=== PATIENT | female | born 1940 | race Caucasian/White ===

== ENCOUNTER → 2017-04-08 | Outpatient (REF) | payer MEDICARE | LOC: M LAB REF 12:46 | PROVIDERS: ATTEND Nurse Practitioner Women's Health | DX: N36.42 Intrinsic sphincter deficiency (ISD) (principal); R39.14 Feeling of incomplete bladder emptying; N39.41 Urge incontinence ==

== ENCOUNTER → 2017-07-07 | Outpatient (REF) | payer MEDICARE | LOC: M LAB REF 09:00 | PROVIDERS: ATTEND Physician Assistant Medical | DX: N39.0 Urinary tract infection, site not specified (principal) ==

== ENCOUNTER → 2017-09-02 | Outpatient (REF) | payer MEDICARE | LOC: M LAB REF 11:45 | PROVIDERS: ATTEND Physician Assistant Medical | DX: N39.0 Urinary tract infection, site not specified (principal) ==

== ENCOUNTER → 2018-05-08 | Outpatient (REF) | payer MEDICARE, OTHER ==
[2018-05-08 13:44] LABS: APPEARANCE, URINE MANUAL CLOUDY (CLEAR); COLOR, URINE MANUAL ORANGE (YELLOW)
[2018-05-08 13:46] LABS: BILIRUBIN, URINE MANUAL OBSCURED (NEGATIVE); BLOOD URINE MANUAL POSITIVE (NEGATIVE); GLUCOSE, URINE (UA) MANUAL NEGATIVE (NEGATIVE); KETONE, URINE MANUAL OBSCURED mg/dL (NEGATIVE); LEUKOCYTE ESTERASE, URINE MAN POSITIVE (NEGATIVE); NITRITE, URINE MANUAL OBSCURED (NEGATIVE); PROTEIN, URINE MANUAL OBSCURED mg/dL (NEGATIVE); UROBILINOGEN, URINE MANUAL OBSCURED mg/dl (NORMAL)
[2018-05-08 13:47] LABS: MICROSCOPIC INDICATED? MAN YES (NO)
[2018-05-08 13:59] LABS: BACTERIA, URINE LARGE AMOUNT; MUCUS, URINE MOD AMOUNT (NEGATIVE); SQUAMOUS EPITHELIAL CELL URINE SMALL AMOUNT /hpf (SMALL AMT); WBC, URINE TNTC /hpf (0-3)
[2018-05-08 14:01] LABS: TRANSITIONAL EPI CELLS, URINE SMALL AMOUNT /hpf
[2018-05-08 14:04] LABS: HYALINE CAST, URINE NONE SEEN /lpf (0-1); MICROSCOPIC EXAM PERFORMED
== END ==
LOC: M LAB REF 13:07
DX: N39.0 Urinary tract infection, site not specified (principal)
CPT/HCPCS: 81015

== ENCOUNTER → 2018-09-02 | Outpatient (REF) | payer OTHER ==
[2018-09-02 22:05] LABS: APPEARANCE, URINE HAZY (CLEAR); BACTERIA, URINE AUTO 1+ (NEGATIVE); BILIRUBIN, URINE AUTO NEGATIVE (NEGATIVE); BLOOD, URINE BLOOD NEGATIVE (NEGATIVE); CALCIUM OXALATE CRYSTALS LARGE; COLOR, URINE YELLOW (YELLOW); GLUCOSE, URINE (UA) AUTO NEGATIVE (NEGATIVE); KETONE, URINE AUTO NEGATIVE (NEGATIVE); LEUKOCYTE ESTERASE, URINE AUTO 1+ (NEGATIVE); MUCUS, URINE SMALL (NEGATIVE); NITRITE, URINE AUTO POSITIVE (NEGATIVE); PROTEIN, URINE AUTO NEGATIVE (NEGATIVE); RBC, URINE AUTO 6 /HPF (0-3); SPECIFIC GRAVITY URINE AUTO 1.018 (1.002-1.035); SQUAMOUS EPITHELIAL CELL UR AU 0 /HPF (0-6); TRANSITIONAL EPITHELIAL AUTO <1 /HPF; UROBILINOGEN, URINE AUTO 0.2 mg/dL (0.0-2.0); WBC, URINE AUTO 38 /HPF (0-3)
== END ==
LOC: M LAB REF 21:16
DX: N39.0 Urinary tract infection, site not specified (principal)
CPT/HCPCS: 81001

== ENCOUNTER → 2018-09-29 | Outpatient (REF) | payer OTHER ==
[2018-09-29 13:34] LABS: ALBUMIN/GLOBULIN RATIO 1.29 (1.00-1.93); ALKALINE PHOSPHATASE 64 U/L (45-117); ALT/SGPT 19 U/L (12-78); ANION GAP 5 MEQ/L (8-16); AST/SGOT 19 U/L (7-37); BILIRUBIN,TOTAL 0.3 MG/DL (0.2-1.0); BLOOD UREA NITROGEN 20 MG/DL (7-18); CALCIUM LEVEL 9.5 MG/DL (8.8-10.2); CARBON DIOXIDE LEVEL 30 MEQ/L (21-32); CHLORIDE LEVEL 106 MEQ/L (98-107); CHOLESTEROL LEVEL 231 MG/DL (<200); CHOLESTEROL RISK RATIO 5.021 (<5); CREATININE FOR GFR 0.76 MG/DL (0.55-1.30); FREE T4 0.93 NG/DL (0.76-1.46); GLOMERULAR FILTRATION RATE > 60.0 (>39); GLUCOSE, FASTING 90 MG/DL (70-100); HDL CHOLESTEROL 46 MG/DL (>40); LDL CHOLESTEROL 131 MG/DL (<100); NON-HDL-C 185 MG/DL; POTASSIUM SERUM 4.3 MEQ/L (3.5-5.1); SODIUM LEVEL 141 MEQ/L (136-145); TOTAL PROTEIN 7.1 GM/DL (6.4-8.2); TRIGLYCERIDES LEVEL 269 MG/DL (<150)
[2018-09-29 14:17] LABS: TOTAL 25(OH) VITAMIN D 33.2 NG/ML (30.0-100.0)
== END ==
LOC: M SFHCPLAZ 11:13
DX: E78.2 Mixed hyperlipidemia (principal); M85.80 Other specified disorders of bone density and structure, unspecified site
CPT/HCPCS: 84443

== ENCOUNTER → 2019-05-20 | Outpatient (REF) | payer OTHER ==
[2019-05-20 19:07] LABS: APPEARANCE, URINE CLOUDY (CLEAR); BACTERIA, URINE AUTO 1+ (NEGATIVE); BILIRUBIN, URINE AUTO NEGATIVE (NEGATIVE); BLOOD, URINE BLOOD NEGATIVE (NEGATIVE); COLOR, URINE YELLOW (YELLOW); GLUCOSE, URINE (UA) AUTO NEGATIVE (NEGATIVE); KETONE, URINE AUTO NEGATIVE (NEGATIVE); LEUKOCYTE ESTERASE, URINE AUTO TRACE (NEGATIVE); MUCUS, URINE SMALL (NEGATIVE); NITRITE, URINE AUTO NEGATIVE (NEGATIVE); PROTEIN, URINE AUTO NEGATIVE (NEGATIVE); RBC, URINE AUTO 2 /HPF (0-3); SPECIFIC GRAVITY URINE AUTO 1.019 (1.002-1.035); SQUAMOUS EPITHELIAL CELL UR AU 9 /HPF (0-6); UROBILINOGEN, URINE AUTO 0.2 mg/dL (0.0-2.0); WBC, URINE AUTO 11 /HPF (0-3)
== END ==
LOC: M LAB REF 16:14
PROVIDERS: ATTEND Obstetrics & Gynecology
DX: N39.41 Urge incontinence (principal)

== ENCOUNTER → 2019-07-03 | Outpatient (REF) | payer MEDICARE | LOC: M LAB REF 12:40 | PROVIDERS: ATTEND Physician Assistant | DX: R30.0 Dysuria (principal) ==

== ENCOUNTER → 2019-09-14 | Outpatient (REF) | payer MEDICARE ==
[2019-09-14 13:35] LABS: APPEARANCE, URINE CLEAR (CLEAR); BACTERIA, URINE AUTO NEGATIVE (NEGATIVE); BILIRUBIN, URINE AUTO NEGATIVE (NEGATIVE); BLOOD, URINE BLOOD NEGATIVE (NEGATIVE); COLOR, URINE YELLOW (YELLOW); GLUCOSE, URINE (UA) AUTO NEGATIVE (NEGATIVE); KETONE, URINE AUTO NEGATIVE (NEGATIVE); LEUKOCYTE ESTERASE, URINE AUTO NEGATIVE (NEGATIVE); MUCUS, URINE SMALL (NEGATIVE); NITRITE, URINE AUTO NEGATIVE (NEGATIVE); PROTEIN, URINE AUTO NEGATIVE (NEGATIVE); RBC, URINE AUTO 0 /HPF (0-3); SPECIFIC GRAVITY URINE AUTO 1.016 (1.002-1.035); SQUAMOUS EPITHELIAL CELL UR AU 1 /HPF (0-6); UROBILINOGEN, URINE AUTO 0.2 mg/dL (0.0-2.0); WBC, URINE AUTO 1 /HPF (0-3)
== END ==
LOC: M LAB REF 12:26
PROVIDERS: ATTEND Physician Assistant Medical
DX: N39.0 Urinary tract infection, site not specified (principal)

== ENCOUNTER → 2019-10-06 | Outpatient (REF) | payer MEDICARE ==
[2019-10-06 18:08] LABS: HEMATOCRIT 39.7 % (36.0-47.0); HEMOGLOBIN 12.5 g/dl (12.0-15.5); MEAN CORPUSCULAR HEMOGLOBIN 30.1 pg (27.0-33.0); MEAN CORPUSCULAR HGB CONC 31.5 g/dl (32.0-36.5); MEAN CORPUSCULAR VOLUME 95.7 fl (80.0-96.0); PLATELET COUNT, AUTOMATED 214 10^3/uL (150-450); RED BLOOD COUNT 4.15 10^6/uL (4.00-5.40); WHITE BLOOD COUNT 9.9 10^3/uL (4.0-10.0)
[2019-10-06 18:28] LABS: ALBUMIN 3.9 GM/DL (3.2-5.2); ALT/SGPT 24 U/L (12-78); BILIRUBIN,TOTAL 0.4 MG/DL (0.2-1.0); BLOOD UREA NITROGEN 25 MG/DL (7-18); CALCIUM LEVEL 8.9 MG/DL (8.8-10.2); CARBON DIOXIDE LEVEL 28 MEQ/L (21-32); CHLORIDE LEVEL 106 MEQ/L (98-107); CHOLESTEROL LEVEL 202 MG/DL (<200); CHOLESTEROL RISK RATIO 3.884 (<5); CREATININE FOR GFR 0.91 MG/DL (0.55-1.30); GLOMERULAR FILTRATION RATE > 60.0 (>39); GLUCOSE, FASTING 81 MG/DL (70-100); HDL CHOLESTEROL 52 MG/DL (>40); LDL CHOLESTEROL 117 MG/DL (<100); NON-HDL-C 150 MG/DL; POTASSIUM SERUM 4.4 MEQ/L (3.5-5.1); SODIUM LEVEL 140 MEQ/L (136-145); TOTAL PROTEIN 7.3 GM/DL (6.4-8.2); TRIGLYCERIDES LEVEL 164 MG/DL (<150)
[2019-10-06 18:33] LABS: TOTAL 25(OH) VITAMIN D 38.8 NG/ML (30.0-100.0)
== END ==
LOC: M SFHCCLAY 11:15
PROVIDERS: ATTEND Nurse Practitioner Family
DX: E78.2 Mixed hyperlipidemia (principal); K21.9 Gastro-esophageal reflux disease without esophagitis; M85.80 Other specified disorders of bone density and structure, unspecified site

== ENCOUNTER → 2019-10-09 | Outpatient (CLI) | payer MEDICARE ==
--- NOTE | 2019-10-09 16:56 | REP ---
Four views left ankle and four views left tibia / fibula: 10/09/2019. Indication: Distal left leg pain. New comparison: None. Findings: There is no evidence of fracture, subluxation or dislocation. Small anterior and posterior calcaneal spurs are present. 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 Impression: No acute fracture or additional acute osseous injuries detected. Electronically Signed by Arnulfo Rose DO 10/09/2019 04:47 P
== END ==
LOC: M CLY 15:21
PROVIDERS: ATTEND Nurse Practitioner Family
DX: M17.12 Unilateral primary osteoarthritis, left knee (principal); M77.32 Calcaneal spur, left foot; M79.605 Pain in left leg; Z23 Encounter for immunization
CPT/HCPCS: 73590; 73610; 90682; G0008; G0463

== ENCOUNTER → 2020-05-26 | Outpatient (REF) | payer MEDICARE | LOC: M SFHCCLAY 11:31 | PROVIDERS: ATTEND Nurse Practitioner Family | DX: N39.0 Urinary tract infection, site not specified (principal) ==

== ENCOUNTER → 2021-02-22 | Outpatient (REF) | payer OTHER ==
[2021-02-22 11:33] LABS: HEMATOCRIT 39.5 % (36.0-47.0); HEMOGLOBIN 12.8 g/dl (12.0-15.5); MEAN CORPUSCULAR HEMOGLOBIN 30.4 pg (27.0-33.0); MEAN CORPUSCULAR HGB CONC 32.4 g/dl (32.0-36.5); MEAN CORPUSCULAR VOLUME 93.8 fl (80.0-96.0); PLATELET COUNT, AUTOMATED 225 10^3/uL (150-450); RED BLOOD COUNT 4.21 10^6/uL (4.00-5.40); WHITE BLOOD COUNT 6.6 10^3/uL (4.0-10.0)
[2021-02-22 11:56] LABS: ALBUMIN 3.8 GM/DL (3.2-5.2); ALT/SGPT 18 U/L (12-78); BILIRUBIN,TOTAL 0.4 MG/DL (0.2-1.0); BLOOD UREA NITROGEN 16 MG/DL (7-18); CALCIUM LEVEL 9.3 MG/DL (8.8-10.2); CARBON DIOXIDE LEVEL 29 MEQ/L (21-32); CHLORIDE LEVEL 107 MEQ/L (98-107); CHOLESTEROL LEVEL 199 MG/DL (<200); CHOLESTEROL RISK RATIO 3.685 (<5); CREATININE FOR GFR 0.77 MG/DL (0.55-1.30); GLOMERULAR FILTRATION RATE > 60.0 (>32); GLUCOSE, FASTING 94 MG/DL (70-100); HDL CHOLESTEROL 54 MG/DL (>40); LDL CHOLESTEROL 124 MG/DL (<100); NON-HDL-C 145 MG/DL; SODIUM LEVEL 142 MEQ/L (136-145); TOTAL PROTEIN 7.3 GM/DL (6.4-8.2); TRIGLYCERIDES LEVEL 105 MG/DL (<150)
[2021-02-22 12:03] LABS: TOTAL 25(OH) VITAMIN D 26.8 NG/ML (30.0-100.0)
== END ==
LOC: M SFHCCLAY 08:52
PROVIDERS: ATTEND Nurse Practitioner Family
DX: K21.9 Gastro-esophageal reflux disease without esophagitis (principal); E78.2 Mixed hyperlipidemia; Z13.21 Encounter for screening for nutritional disorder; Z79.899 Other long term (current) drug therapy

== ENCOUNTER → 2021-05-13 | Outpatient (CLI) | payer OTHER ==
[~2021-05-13] MED LIST: ASPI81TA26 PO; CALC500T38 PO; CRAN200C PO; ESTR0.1C5; FISH1000 PO; GNP1000C11 PO; K 10100T PO; VITMTA PO; ZINC1TAB2 PO
== END ==
LOC: M LABSMTC 10:16
PROVIDERS: ATTEND Anesthesiology
DX: Z11.52 Encounter for screening for COVID-19 (principal)

== ENCOUNTER 2021-05-18 08:34 | Day surgery (SDC) | payer OTHER ==
[~2021-05-18] VITALS: Ht 167.6 cm; Wt 94.3 kg
[~2021-05-18 08:34] MED LIST changes: +LR 1,000 ML IV ONE; +ceFAZolin SOD 2 GM in IV 1 EA IV ONE
[2021-05-18] MEDS ORDERED: ETOMIDATE INJ 20MG/10ML VIAL As Ordered ONE (09:48)
[2021-05-18] MEDS ORDERED: ceFAZolin 1GM VIAL (J0690 PER 500MG) As Ordered ONE (10:41)
[2021-05-18] MEDS ORDERED: LIDOCAINE 1% SDV 30ML VIAL As Ordered ONE (10:41)
[2021-05-18] MEDS ORDERED: propofoL 200 MG/20 ML VIAL As Ordered ONE (11:51)
--- NOTE | 2021-05-18 12:51 | REP ---
INDICATION: PLACEMENT OF LEAD. COMPARISON: None. TECHNIQUE: Three views. 49.3 seconds of fluoroscopy time is reported. FINDINGS: A sequence of 3 last image hold fluoroscopically obtained spot radiographs the pelvis document neurostimulator lead placement. IMPRESSION: Procedural imaging. <Electronically signed by Kishor Jose > 05/18/21 [id number]
[2021-05-18 13:06] VITALS: BP 167/81
--- NOTE | 2021-05-18 15:04 | RO ---
OPERATIVE NOTE DATE OF OPERATION: 05/18/2021 PREOPERATIVE DIAGNOSIS/INDICATIONS FOR SURGERY: Incontinence. POSTOPERATIVE DIAGNOSIS: Incontinence. PROCEDURE: InterStim stage I. SURGEON: Chantale Snowden MD MANAGER PHOTO: None. ANESTHESIA: Sedation and local. DESCRIPTION OF PROCEDURE/FINDINGS: Halle was brought to the operating room where sufficient sedation was given. She was prepped, draped and positioned prone as is typical for InterStim. After prep, etc, she was numbed with 1% Lidocaine without and then after waiting for that to setup starting on the patient's left side dropped the needle into 3rd sacral foramen and tested it, really did not have a good response, finally got that better with like a 3 so we placed in two other locations into that same foramen a needle and really did not get good response even though by films we seem to be at the appropriate spot in the foramen. We went to the patient's right side and again with the needle placed in the 3rd sacral foramen and this confirmed by x-ray evaluation we went ahead and tested and we had good maco and toe response so we decided to use that one on the right side. With that in the typical fashion the curved lead was placed on the right side and testing it we had response at all four leads at under 1. We then extended that out to pocket which we made today, connected it again, brought in the extension and connected those and then irrigated the pocket and closed the pocket and closed all of the skin wounds. We used the antibacterial irrigant, we did not use the iodine impregnated sticky drape because the patient is allergic to iodine but we were careful in the prep as much as possible otherwise and did of course use the antibiotic irrigant. With the wounds closed and the procedure ended. ESTIMATED BLOOD LOSS: About 2 mL. FLUID REPLACEMENT: Crystalloid. COMPLICATIONS: None. CONDITION/DISPOSITION: Halle tolerated the procedure well and was recovering in the recovery room in good condition.
== END 2021-05-18 13:11 | disposition home or self-care (01) ==
LOC: M SDC 08:34
PROVIDERS: ATTEND Obstetrics & Gynecology
DX: R32 Unspecified urinary incontinence (principal); G47.30 Sleep apnea, unspecified; Z87.440 Personal history of urinary (tract) infections; Z88.8 Allergy status to other drugs, medicaments and biological substances; Z88.2 Allergy status to sulfonamides; Z79.899 Other long term (current) drug therapy; Z79.890 Hormone replacement therapy; Z79.82 Long term (current) use of aspirin
CPT/HCPCS: 64581; 76000; C1897; J0690

== ENCOUNTER → 2021-05-20 | Outpatient (CLI) | payer OTHER ==
[~2021-05-20] MED LIST changes: -LR 1,000 ML IV ONE; -ceFAZolin SOD 2 GM in IV 1 EA IV ONE
== END ==
LOC: M LABSMTC 09:52
PROVIDERS: ATTEND Anesthesiology
DX: Z01.818 Encounter for other preprocedural examination (principal); Z20.822 Contact with and (suspected) exposure to COVID-19

== ENCOUNTER 2021-05-25 12:06 | Day surgery (SDC) | payer OTHER ==
[~2021-05-25] VITALS: Ht 167.6 cm; Wt 92.9 kg
[~2021-05-25 12:06] MED LIST changes: +LIDOCAINE 1% MDV 20ML VIAL SQ PRN; +LR 1,000 ML IV ONE; +LR 1,000 ML IV SCH; +ceFAZolin SOD 2 GM in IV 1 EA IV ONE
[2021-05-25] MEDS ORDERED: LIDOCAINE 1% SDV 30ML VIAL As Ordered ONE (14:05)
[2021-05-25] MEDS ORDERED: dexameTHASONE 4 MG/ML 1ML VIAL (J1100 PER 1MG) As Ordered ONE (14:06)
[2021-05-25] MEDS ORDERED: LIDOCAINE 2% 100MG/5ML SDV (FOR ANES.) As Ordered ONE (14:06)
[2021-05-25] MEDS ORDERED: ONDANSETRON 4MG/2ML VIAL As Ordered ONE (14:06)
[2021-05-25] MEDS ORDERED: propofoL 500 MG/50 ML VIAL As Ordered ONE (14:07)
[2021-05-25] MEDS ORDERED: MIDAZOLAM INJ 2MG/2ML VIAL (J2250 PER 1MG) As Ordered ONE (14:07)
[2021-05-25] MEDS ORDERED: fentaNYL 100 MCG/2 ML INJECTION (J3010) As Ordered ONE (14:07)
[2021-05-25] MEDS ORDERED: ceFAZolin 1GM VIAL (J0690 PER 500MG) As Ordered ONE (14:10)
[2021-05-25 16:04] VITALS: BP 140/84
--- NOTE | 2021-05-26 11:04 | RO ---
OPERATIVE NOTE DATE OF OPERATION: 05/25/2021 PREOPERATIVE DIAGNOSIS/INDICATIONS FOR SURGERY: Successful stage 1 InterStim for incontinence. POSTOPERATIVE DIAGNOSIS: Successful stage 1 InterStim for incontinence. PROCEDURE: Stage 2 InterStim with permanent generator placement and programming and removal of temporary generator and lead. SURGEON: Chantale Snowden MD SUPERVISOR CIGAR MAKING HAND: None. ANESTHESIA: MAC and local. SPECIMEN: None. DESCRIPTION OF PROCEDURE/FINDINGS: Halle was brought to the operating room where sufficient MAC was induced. She was prepped and positioned in normal fashion, prone as is typical for these cases and after the time out, etc 1% Lidocaine without was injected for local analgesia. After an appropriate wait incision was made over the previous temporary pocket. The connection of the permanent lead to the temporary lead and generator was elevated and disconnected. The end of the temporary lead was cut off so that we could then just draw out the temporary lead without that bulk coming through again. The permanent lead was connected to the permanent generator. Pocket was irrigated with antibacterial irrigant and reevaluated. Any bleeding vessels were cauterized with Bovie cautery. The Shiftgigtronic permanent InterStim rechargeable generator was placed and the pocket secured using 2-0 Vicryl in deep layer and then skin closed with 3-0 Vicryl in subcuticular stitch. The sutures from the previous procedures were removed and the temporary lead and generator removed. Dry, sterile dressing was then done and programming the permanent generator done and the procedure ended. ESTIMATED BLOOD LOSS: 1 mL. FLUID REPLACEMENT: Crystalloid. COMPLICATIONS: None. CONDITION AND DISPOSITION: Halle tolerated the procedure well and was recovering in the recovery room in good condition.
== END 2021-05-25 16:04 | disposition home or self-care (01) ==
LOC: M SDC 12:06
PROVIDERS: ATTEND Obstetrics & Gynecology
DX: R32 Unspecified urinary incontinence (principal); G47.33 Obstructive sleep apnea (adult) (pediatric); Z78.0 Asymptomatic menopausal state; Z79.82 Long term (current) use of aspirin; Z88.2 Allergy status to sulfonamides; Z91.048 Other nonmedicinal substance allergy status
CPT/HCPCS: 64590; C1787; J0690; J1100; J2250; J2405; J3010

== ENCOUNTER → 2021-07-21 | Outpatient (REF) | payer OTHER ==
[~2021-07-21] MED LIST changes: -LIDOCAINE 1% MDV 20ML VIAL SQ PRN; -LR 1,000 ML IV ONE; -LR 1,000 ML IV SCH; -ceFAZolin SOD 2 GM in IV 1 EA IV ONE
[2021-07-21 17:47] LABS: APPEARANCE, URINE HAZY (CLEAR); BACTERIA, URINE AUTO NEGATIVE (NEGATIVE); BILIRUBIN, URINE AUTO NEGATIVE (NEGATIVE); BLOOD, URINE BLOOD NEGATIVE (NEGATIVE); COLOR, URINE YELLOW (YELLOW); GLUCOSE, URINE (UA) AUTO NEGATIVE (NEGATIVE); KETONE, URINE AUTO NEGATIVE (NEGATIVE); LEUKOCYTE ESTERASE, URINE AUTO 1+ (NEGATIVE); MUCUS, URINE SMALL (NEGATIVE); NITRITE, URINE AUTO NEGATIVE (NEGATIVE); PROTEIN, URINE AUTO NEGATIVE (NEGATIVE); RBC, URINE AUTO 1 /HPF (0-3); SPECIFIC GRAVITY URINE AUTO 1.011 (1.002-1.035); SQUAMOUS EPITHELIAL CELL UR AU 0 /HPF (0-6); UROBILINOGEN, URINE AUTO 0.2 mg/dL (0.0-2.0); WBC, URINE AUTO 15 /HPF (0-3)
== END ==
LOC: M LAB REF 16:13
PROVIDERS: ATTEND Physician Assistant Medical
DX: R30.0 Dysuria (principal)

== ENCOUNTER → 2022-04-18 | Outpatient (REF) | payer OTHER ==
[2022-04-18 17:20] LABS: APPEARANCE, URINE CLEAR (CLEAR); BACTERIA, URINE AUTO 1+ (NEGATIVE); BILIRUBIN, URINE AUTO NEGATIVE (NEGATIVE); BLOOD, URINE BLOOD NEGATIVE (NEGATIVE); COLOR, URINE STRAW (YELLOW); GLUCOSE, URINE (UA) AUTO NEGATIVE (NEGATIVE); KETONE, URINE AUTO NEGATIVE (NEGATIVE); LEUKOCYTE ESTERASE, URINE AUTO TRACE (NEGATIVE); NITRITE, URINE AUTO NEGATIVE (NEGATIVE); PROTEIN, URINE AUTO NEGATIVE (NEGATIVE); RBC, URINE AUTO 1 /HPF (0-3); SPECIFIC GRAVITY URINE AUTO 1.005 (1.002-1.035); SQUAMOUS EPITHELIAL CELL UR AU 0 /HPF (0-6); UROBILINOGEN, URINE AUTO 0.2 mg/dL (0.0-2.0); WBC, URINE AUTO 2 /HPF (0-3)
== END ==
LOC: M LAB REF 16:11
PROVIDERS: ATTEND Obstetrics & Gynecology
DX: N32.81 Overactive bladder (principal); R39.14 Feeling of incomplete bladder emptying

== ENCOUNTER → 2022-08-28 | Outpatient (REF) | payer OTHER ==
[2022-08-28 12:04] LABS: HEMATOCRIT 36.6 % (36.0-47.0); HEMOGLOBIN 12.1 g/dl (12.0-15.5); MEAN CORPUSCULAR HEMOGLOBIN 31.2 pg (27.0-33.0); MEAN CORPUSCULAR HGB CONC 33.1 g/dl (32.0-36.5); MEAN CORPUSCULAR VOLUME 94.3 fl (80.0-96.0); PLATELET COUNT, AUTOMATED 223 10^3/uL (150-450); RED BLOOD COUNT 3.88 10^6/uL (4.00-5.40); WHITE BLOOD COUNT 7.9 10^3/uL (4.0-10.0)
[2022-08-28 12:20] LABS: BLOOD UREA NITROGEN 22 MG/DL (7-18); CALCIUM LEVEL 9.2 MG/DL (8.8-10.2); CARBON DIOXIDE LEVEL 29 MEQ/L (21-32); CHLORIDE LEVEL 109 MEQ/L (98-107); CHOLESTEROL LEVEL 207 MG/DL (<200); CHOLESTEROL RISK RATIO 3.696 (<5); GLOMERULAR FILTRATION RATE > 60.0 (>32); GLUCOSE, FASTING 101 MG/DL (70-100); HDL CHOLESTEROL 56 MG/DL (>40); LDL CHOLESTEROL 125 MG/DL (<100); NON-HDL-C 151 MG/DL; POTASSIUM SERUM 4.1 MEQ/L (3.5-5.1); SODIUM LEVEL 141 MEQ/L (136-145); TRIGLYCERIDES LEVEL 131 MG/DL (<150)
== END ==
LOC: M SFHCCLAY 08:50
PROVIDERS: ATTEND Nurse Practitioner Family
DX: G47.33 Obstructive sleep apnea (adult) (pediatric) (principal); K21.9 Gastro-esophageal reflux disease without esophagitis; E78.5 Hyperlipidemia, unspecified

== ENCOUNTER → 2023-03-20 | Outpatient (REF) | payer MEDICARE | LOC: M SFHCCLAY 14:08 | PROVIDERS: ATTEND Nurse Practitioner Family | DX: R30.0 Dysuria (principal) ==

== ENCOUNTER → 2023-04-12 | Outpatient (REF) | payer MEDICARE ==
[2023-04-12 12:57] LABS: APPEARANCE, URINE HAZY (CLEAR); BACTERIA, URINE AUTO NEGATIVE (NEGATIVE); BILIRUBIN, URINE AUTO NEGATIVE (NEGATIVE); BLOOD, URINE BLOOD NEGATIVE (NEGATIVE); COLOR, URINE YELLOW (YELLOW); GLUCOSE, URINE (UA) AUTO NEGATIVE (NEGATIVE); KETONE, URINE AUTO NEGATIVE (NEGATIVE); LEUKOCYTE ESTERASE, URINE AUTO 2+ (NEGATIVE); MUCUS, URINE SMALL (NEGATIVE); NITRITE, URINE AUTO NEGATIVE (NEGATIVE); PROTEIN, URINE AUTO NEGATIVE (NEGATIVE); RBC, URINE AUTO 2 /HPF (0-3); SPECIFIC GRAVITY URINE AUTO 1.014 (1.002-1.035); SQUAMOUS EPITHELIAL CELL UR AU 5 /HPF (0-6); UROBILINOGEN, URINE AUTO 0.2 mg/dL (0.0-2.0); WBC, URINE AUTO 24 /HPF (0-3)
== END ==
LOC: M LAB REF 12:15
PROVIDERS: ATTEND Physician Assistant
DX: N39.0 Urinary tract infection, site not specified (principal)

== ENCOUNTER 2023-04-30 09:19 | Emergency (ER) | payer MEDICARE ==
[~2023-04-30] VITALS: Ht 167.6 cm; Wt 90.0 kg
[2023-04-30 09:19] VITALS: TEMP 98.6
[2023-04-30] MEDS ORDERED: METOCLOPRAMIDE INJ 10MG/2ML VIAL IV ONE (10:20)
[2023-04-30] MEDS: MORPHINE 2 MG/ML 1ML VIAL IV PRN ×2 (11:01→12:07)
[2023-04-30 11:07] LABS: BASO # 0.1 10^3/uL (0.0-0.2); BASO % 0.6 % (0.0-1.0); EOS # 0.4 10^3/uL (0.0-0.5); EOS % 4.6 % (0.0-3.0); HEMATOCRIT 38.4 % (36.0-47.0); HEMOGLOBIN 12.7 g/dl (12.0-15.5); LYMPH # 2.2 10^3/uL (1.5-5.0); LYMPH % 28.3 % (24.0-44.0); MEAN CORPUSCULAR HEMOGLOBIN 30.6 pg (27.0-33.0); MEAN CORPUSCULAR HGB CONC 33.1 g/dl (32.0-36.5); MEAN CORPUSCULAR VOLUME 92.5 fl (80.0-96.0); MONO # 0.6 10^3/uL (0.0-0.8); MONO % 7.9 % (2.0-8.0); NEUTROPHILS # 4.5 10^3/uL (1.5-8.5); NEUTROPHILS % 58.1 % (36.0-66.0); PLATELET COUNT, AUTOMATED 192 10^3/uL (150-450); RED BLOOD COUNT 4.15 10^6/uL (4.00-5.40); WHITE BLOOD COUNT 7.8 10^3/uL (4.0-10.0)
[2023-04-30 11:20] LABS: INR 0.97; PROTHROMBIN TIME 13.1 SECONDS (12.5-14.5)
[2023-04-30 11:21] LABS: PARTIAL THROMBOPLASTIN TIME 29.2 SECONDS (24.8-34.2)
[2023-04-30 11:37] LABS: BLOOD UREA NITROGEN 20 MG/DL (9-23); CALCIUM LEVEL 8.7 MG/DL (8.3-10.6); CARBON DIOXIDE LEVEL 28 MMOL/L (20-31); CHLORIDE LEVEL 108 MMOL/L (98-107); CK-MB VALUE MASS < 1.0 NG/ML (<3.6); CPK CREATINE PHOSPHOKINASE 90 U/L (34-145); CREATININE FOR GFR 0.74 MG/DL (0.55-1.30); GLOMERULAR FILTRATION RATE > 60.0 (>32); GLUCOSE, FASTING 90 MG/DL (74-106); MB/CK RELATIVE INDEX 1.11 (< OR =4); POTASSIUM SERUM 4.1 MMOL/L (3.5-5.1); SODIUM LEVEL 142 MMOL/L (136-145)
[2023-04-30] MEDS ORDERED: methylPREDNISolone 125MG 2ML VIAL IV ONE (11:50)
[2023-04-30] MEDS ORDERED: diphenhydrAMINE 50MG/ML VIAL IV ONE ×2 (11:50→14:20)
[2023-04-30 11:55] LABS: RSV AMPLIFICATION NEGATIVE (NEGATIVE)
[2023-04-30 12:18] LABS: ERYTHROCYTE SEDIMENTATION RATE 23 mm/hr (0-30)
[2023-04-30] MEDS ORDERED: ISOVUE-370 76% 100ML VIAL As Ordered ONE (12:50)
[2023-04-30] MEDS ORDERED: KETOROLAC 30 MG/ML 1ML VIAL IV ONE (14:20)
[2023-04-30] MEDS ORDERED: ACETAMINOPHEN 500 MG TAB PO ONE (14:20)
[2023-04-30 14:26] VITALS: BP 112/72
[2023-04-30] MEDS ORDERED: MAG SULF 1GM/100ML (MAG RUN) 1 GM in IV 1 EA IV ONE (14:50)
[2023-04-30] MEDS ORDERED: PRED20TA PO (16:14)
[2023-04-30] MEDS ORDERED: KETO10TAB PO (16:14)
[2023-04-30 16:19] VITALS: O2SAT 96
== END 2023-04-30 16:36 | disposition home or self-care (01) ==
LOC: M ED 09:19
DX: R51.9 Headache, unspecified (principal); E78.5 Hyperlipidemia, unspecified; K44.9 Diaphragmatic hernia without obstruction or gangrene; G47.33 Obstructive sleep apnea (adult) (pediatric); F17.200 Nicotine dependence, unspecified, uncomplicated; Z88.2 Allergy status to sulfonamides; Z88.8 Allergy status to other drugs, medicaments and biological substances; Z79.899 Other long term (current) drug therapy; Z79.82 Long term (current) use of aspirin
CPT/HCPCS: 70450; 70496; 70498; 71045; 80048; 82550; 82553; 84484; 85025; 85610; 85652; 85730; 86140; 87631; 93005; 93041; 94760; 96365; 96375; 96376; 99285; J1200; J1885; J2765; J2930; J3475; Q9967

== ENCOUNTER → 2023-07-27 | Outpatient (REF) | payer MEDICARE ==
[~2023-07-27] MED LIST changes: +KETO10TAB PO; +PRED20TA PO
[2023-07-27 17:38] LABS: APPEARANCE, URINE CLOUDY (CLEAR); BACTERIA, URINE AUTO 2+ (NEGATIVE); BILIRUBIN, URINE AUTO NEGATIVE (NEGATIVE); BLOOD, URINE BLOOD 1+ (NEGATIVE); COLOR, URINE AMBER (YELLOW); GLUCOSE, URINE (UA) AUTO NEGATIVE (NEGATIVE); KETONE, URINE AUTO TRACE mg/dL (NEGATIVE); LEUKOCYTE ESTERASE, URINE AUTO 2+ (NEGATIVE); MUCUS, URINE MODERATE (NEGATIVE); NITRITE, URINE AUTO NEGATIVE (NEGATIVE); PROTEIN, URINE AUTO NEGATIVE (NEGATIVE); RBC, URINE AUTO 4 /HPF (0-3); SPECIFIC GRAVITY URINE AUTO 1.017 (1.002-1.035); SQUAMOUS EPITHELIAL CELL UR AU 10 /HPF (0-6); UROBILINOGEN, URINE AUTO 0.2 mg/dL (0.0-2.0); WBC, URINE AUTO 69 /HPF (0-3)
== END ==
LOC: M LAB REF 17:20
PROVIDERS: ATTEND Physician Assistant Medical
DX: N39.0 Urinary tract infection, site not specified (principal)

== ENCOUNTER → 2023-09-20 | Outpatient (REF) | payer MEDICARE ==
[2023-09-20 17:48] LABS: HEMOGLOBIN A1c 5.2 % (4.0-6.0)
[2023-09-20 18:05] LABS: ALBUMIN 3.9 G/DL (3.2-5.2); ALKALINE PHOSPHATASE 54 U/L (46-116); ALT/SGPT 12 U/L (7.0-40); AST/SGOT 17 U/L (<34); BILIRUBIN,TOTAL 0.4 MG/DL (0.3-1.2); BLOOD UREA NITROGEN 23 MG/DL (9-23); CALCIUM LEVEL 10.6 MG/DL (8.3-10.6); CARBON DIOXIDE LEVEL 29 MMOL/L (20-31); CHLORIDE LEVEL 105 MMOL/L (98-107); CHOLESTEROL LEVEL 242 MG/DL (<200); CHOLESTEROL RISK RATIO 4.44 (<5); CREATININE FOR GFR 0.74 MG/DL (0.55-1.30); GLOMERULAR FILTRATION RATE > 60.0 (>32); GLUCOSE, FASTING 89 MG/DL (74-106); HDL CHOLESTEROL 54.4 MG/DL (>40); LDL CHOLESTEROL 155.8 MG/DL (<100); NON-HDL-C 187.6 MG/DL; POTASSIUM SERUM 4.1 MMOL/L (3.5-5.1); SODIUM LEVEL 142 MMOL/L (136-145); TOTAL PROTEIN 7.2 G/DL (5.7-8.2); TRIGLYCERIDES LEVEL 159 MG/DL (<150)
== END ==
LOC: M SFHCCLAY 11:26
PROVIDERS: ATTEND Nurse Practitioner Family
DX: Z13.1 Encounter for screening for diabetes mellitus (principal); E78.5 Hyperlipidemia, unspecified; I10 Essential (primary) hypertension; R35.0 Frequency of micturition; Z79.899 Other long term (current) drug therapy

== ENCOUNTER → 2023-10-01 | Outpatient (REF) | payer MEDICARE ==
[2023-10-01 17:33] LABS: APPEARANCE, URINE HAZY (CLEAR); BACTERIA, URINE AUTO NEGATIVE (NEGATIVE); BILIRUBIN, URINE AUTO NEGATIVE (NEGATIVE); BLOOD, URINE BLOOD NEGATIVE (NEGATIVE); COLOR, URINE YELLOW (YELLOW); GLUCOSE, URINE (UA) AUTO NEGATIVE (NEGATIVE); KETONE, URINE AUTO NEGATIVE (NEGATIVE); LEUKOCYTE ESTERASE, URINE AUTO NEGATIVE (NEGATIVE); MUCUS, URINE SMALL (NEGATIVE); NITRITE, URINE AUTO NEGATIVE (NEGATIVE); PROTEIN, URINE AUTO NEGATIVE (NEGATIVE); RBC, URINE AUTO 0 /HPF (0-3); SPECIFIC GRAVITY URINE AUTO 1.014 (1.002-1.035); SQUAMOUS EPITHELIAL CELL UR AU 7 /HPF (0-6); UROBILINOGEN, URINE AUTO 0.2 mg/dL (0.0-2.0); WBC, URINE AUTO 1 /HPF (0-3)
== END ==
LOC: M SFHCCLAY 10:13
PROVIDERS: ATTEND Nurse Practitioner Family
DX: N39.0 Urinary tract infection, site not specified (principal)

== ENCOUNTER 2024-03-18 08:10 | Emergency (ER) | payer MEDICARE, OTHER ==
[~2024-03-18] VITALS: Ht 167.6 cm; Wt 95.5 kg
[2024-03-18 09:33] LABS: BASO % 0.3 % (0.0-1.0); HEMATOCRIT 37.8 % (36.0-47.0); HEMOGLOBIN 12.4 g/dl (12.0-15.5); LYMPH # 1.5 10^3/uL (1.5-5.0); LYMPH % 13.4 % (24.0-44.0); MEAN CORPUSCULAR HEMOGLOBIN 30.6 pg (27.0-33.0); MEAN CORPUSCULAR HGB CONC 32.8 g/dl (32.0-36.5); MEAN CORPUSCULAR VOLUME 93.3 fl (80.0-96.0); MONO # 1.3 10^3/uL (0.0-0.8); NEUTROPHILS # 8.6 10^3/uL (1.5-8.5); PLATELET COUNT, AUTOMATED 211 10^3/uL (150-450); RED BLOOD COUNT 4.05 10^6/uL (4.00-5.40); WHITE BLOOD COUNT 11.5 10^3/uL (4.0-10.0)
[2024-03-18 10:03] LABS: OSMOLALITY SERUM 298 MOSM/KG (280-301)
[2024-03-18 10:06] LABS: ALBUMIN 3.5 G/DL (3.2-5.2); ALKALINE PHOSPHATASE 46 U/L (46-116); ALT/SGPT 11 U/L (7.0-40); AST/SGOT 17 U/L (<34); BILIRUBIN,DIRECT 0.2 MG/DL (<0.4); BILIRUBIN,TOTAL 0.5 MG/DL (0.3-1.2); BLOOD UREA NITROGEN 21 MG/DL (9-23); CALCIUM LEVEL 9.4 MG/DL (8.3-10.6); CARBON DIOXIDE LEVEL 26 MMOL/L (20-31); CHLORIDE LEVEL 108 MMOL/L (98-107); CREATININE FOR GFR 0.69 MG/DL (0.55-1.30); GLOMERULAR FILTRATION RATE > 60.0 (>32); GLUCOSE, FASTING 129 MG/DL (74-106); MAGNESIUM LEVEL 1.7 MG/DL (1.8-2.4); POTASSIUM SERUM 3.6 MMOL/L (3.5-5.1); SODIUM LEVEL 141 MMOL/L (136-145); TOTAL PROTEIN 6.9 G/DL (5.7-8.2)
[2024-03-18 10:07] LABS: THYROID STIMULATING HORMONE 1.587 uIU/ML (0.55-4.78)
[2024-03-18 10:08] LABS: FOLATE > 24.00 NG/ML (>5.4); VITAMIN B12 LEVEL 355 PG/ML (211-911)
[2024-03-18] MEDS: ONDANSETRON 4MG 2ML VIAL IV ONE (11:38)
[2024-03-18] MEDS: MORPHINE 2 MG/ML 1ML VIAL IV PRN (11:39)
[2024-03-18] MEDS ORDERED: OMEG100011 PO (13:22)
[2024-03-18] MEDS ORDERED: MULT-40 PO (13:22)
[2024-03-18] MEDS ORDERED: ZINC220CA PO (13:22)
[2024-03-18] MEDS ORDERED: CRAN400C PO (13:22)
[2024-03-18] MEDS ORDERED: HOME MED LIST COMPLETE! XX SCH (13:25)
[2024-03-18] MEDS: NS 1,000 ML IV SCH (15:48)
[2024-03-18] MEDS: MORPHINE 4 MG/ML 1ML VIAL IV PRN (18:12)
[2024-03-18 18:17] VITALS: BP 166/73; TEMP 97.7; O2SAT 96
== END 2024-03-18 18:40 | disposition short-term general hospital (02) ==
LOC: M ED 08:10
DX: G83.4 Cauda equina syndrome (principal); Z88.2 Allergy status to sulfonamides; Z88.8 Allergy status to other drugs, medicaments and biological substances; Z79.899 Other long term (current) drug therapy; Z79.810 Long term (current) use of selective estrogen receptor modulators (SERMs)
CPT/HCPCS: 72148; 80048; 80076; 82607; 82746; 83605; 83735; 83930; 84443; 85025; 87486; 87581; 87633; 87798; 93005; 93041; 94760; 96361; 96374; 96375; 96376; 99285; J2405

== ENCOUNTER → 2024-04-03 | Outpatient (REF) | payer OTHER ==
[~2024-04-03] MED LIST changes: +CRAN400C PO; +MULT-40 PO; +OMEG100011 PO; +ZINC220CA PO
[2024-04-03 17:16] LABS: BASO # 0.1 10^3/uL (0.0-0.2); BASO % 0.6 % (0.0-1.0); EOS # 0.1 10^3/uL (0.0-0.5); EOS % 0.9 % (0.0-3.0); HEMATOCRIT 34.3 % (36.0-47.0); HEMOGLOBIN 11.2 g/dl (12.0-15.5); LYMPH # 2.8 10^3/uL (1.5-5.0); LYMPH % 29.2 % (24.0-44.0); MEAN CORPUSCULAR HEMOGLOBIN 30.8 pg (27.0-33.0); MEAN CORPUSCULAR HGB CONC 32.7 g/dl (32.0-36.5); MEAN CORPUSCULAR VOLUME 94.2 fl (80.0-96.0); MONO # 0.9 10^3/uL (0.0-0.8); MONO % 8.9 % (2.0-8.0); NEUTROPHILS # 5.8 10^3/uL (1.5-8.5); NEUTROPHILS % 59.6 % (36.0-66.0); PLATELET COUNT, AUTOMATED 365 10^3/uL (150-450); RED BLOOD COUNT 3.64 10^6/uL (4.00-5.40); WHITE BLOOD COUNT 9.7 10^3/uL (4.0-10.0)
[2024-04-03 17:20] LABS: ALBUMIN 3.2 G/DL (3.2-5.2); ALKALINE PHOSPHATASE 67 U/L (46-116); ALT/SGPT 16 U/L (7.0-40); AST/SGOT 12 U/L (<34); BILIRUBIN,TOTAL 0.2 MG/DL (0.3-1.2); BLOOD UREA NITROGEN 18 MG/DL (9-23); CARBON DIOXIDE LEVEL 30 MMOL/L (20-31); CHLORIDE LEVEL 107 MMOL/L (98-107); CREATININE FOR GFR 0.77 MG/DL (0.55-1.30); GLOMERULAR FILTRATION RATE > 60.0 (>32); GLUCOSE, FASTING 92 MG/DL (74-106); POTASSIUM SERUM 4.1 MMOL/L (3.5-5.1); SODIUM LEVEL 142 MMOL/L (136-145); TOTAL PROTEIN 6.8 G/DL (5.7-8.2)
== END ==
LOC: M SFHCCLAY 14:40
PROVIDERS: ATTEND Nurse Practitioner Family
DX: G83.4 Cauda equina syndrome (principal)

== ENCOUNTER → 2024-08-06 | Outpatient (REF) | payer OTHER ==
[~2024-08-06] MED LIST changes: -CRAN400C PO; +CRANBERRY400 MG PO
== END ==
LOC: M SFHCCLAY 11:45 → EEVIPCON 11:45
PROVIDERS: ATTEND Nurse Practitioner Family
DX: R35.0 Frequency of micturition (principal)

== ENCOUNTER → 2024-09-01 | Outpatient (REF) | payer OTHER | LOC: M SFHCCLAY 16:36 | PROVIDERS: ATTEND Nurse Practitioner Family | DX: R30.0 Dysuria (principal) ==

== ENCOUNTER → 2024-09-10 | Outpatient (CLI) | payer OTHER | LOC: M CLY 10:28 | PROVIDERS: ATTEND Physician Assistant | DX: M25.411 Effusion, right shoulder (principal); M19.011 Primary osteoarthritis, right shoulder ==

== ENCOUNTER → 2024-09-10 | Outpatient (REF) | payer OTHER ==
[2024-09-10 18:53] LABS: BASO # 0.1 10^3/uL (0.0-0.2); BASO % 0.6 % (0.0-1.0); EOS # 0.2 10^3/uL (0.0-0.5); EOS % 1.9 % (0.0-3.0); HEMATOCRIT 34.4 % (36.0-47.0); HEMOGLOBIN 11.4 g/dl (12.0-15.5); LYMPH # 2.8 10^3/uL (1.5-5.0); MEAN CORPUSCULAR HEMOGLOBIN 30.6 pg (27.0-33.0); MEAN CORPUSCULAR HGB CONC 33.1 g/dl (32.0-36.5); MEAN CORPUSCULAR VOLUME 92.5 fl (80.0-96.0); MONO # 0.8 10^3/uL (0.0-0.8); NEUTROPHILS # 4.8 10^3/uL (1.5-8.5); NEUTROPHILS % 55.3 % (36.0-66.0); PLATELET COUNT, AUTOMATED 249 10^3/uL (150-450); RED BLOOD COUNT 3.72 10^6/uL (4.00-5.40); WHITE BLOOD COUNT 8.6 10^3/uL (4.0-10.0)
[2024-09-10 18:58] LABS: ERYTHROCYTE SEDIMENTATION RATE 28 mm/hr (0-30)
[2024-09-10 19:14] LABS: C REACTIVE PROTEIN QUANTITATIV < 0.40 MG/DL (<1.0)
[2024-09-10 19:16] LABS: ALBUMIN 3.8 G/DL (3.2-5.2); ALKALINE PHOSPHATASE 55 U/L (46-116); ALT/SGPT 12 U/L (7.0-40); AST/SGOT 12 U/L (<34); BILIRUBIN,TOTAL 0.3 MG/DL (0.3-1.2); BLOOD UREA NITROGEN 23 MG/DL (9-23); CALCIUM LEVEL 9.8 MG/DL (8.3-10.6); CARBON DIOXIDE LEVEL 28 MMOL/L (20-31); CHLORIDE LEVEL 110 MMOL/L (98-107); CREATININE FOR GFR 0.74 MG/DL (0.55-1.30); GLOMERULAR FILTRATION RATE > 60.0 (>32); GLUCOSE, FASTING 92 MG/DL (74-106); POTASSIUM SERUM 4.4 MMOL/L (3.5-5.1); SODIUM LEVEL 141 MMOL/L (136-145); TOTAL PROTEIN 6.9 G/DL (5.7-8.2)
[2024-09-10 19:17] LABS: RHEUMATOID FACTOR QUANT 7.3 IU/ML (<14)
[2024-09-14 13:02] LABS: ANA SCREEN, IFA NEGATIVE (NEGATIVE)
== END ==
LOC: M SFHCCLAY 10:40
PROVIDERS: ATTEND Physician Assistant
DX: M25.411 Effusion, right shoulder (principal); R39.9 Unspecified symptoms and signs involving the genitourinary system

== ENCOUNTER → 2025-04-05 | Outpatient (REF) | payer MEDICARE ==
[2025-04-05 17:42] LABS: BILIRUBIN,TOTAL 0.3 MG/DL (0.3-1.2); CALCIUM LEVEL 10.2 MG/DL (8.3-10.6); CHOLESTEROL RISK RATIO 3.65 (<5); CREATININE FOR GFR 0.82 MG/DL (0.55-1.30); GLOMERULAR FILTRATION RATE 70.1 (>32); HDL CHOLESTEROL 66.2 MG/DL (>40); LDL CHOLESTEROL 146.4 MG/DL (<100); NON-HDL-C 175.8 MG/DL; POTASSIUM SERUM 4.4 MMOL/L (3.5-5.1); TOTAL PROTEIN 7.2 G/DL (5.7-8.2)
[2025-04-05 17:49] LABS: HEMATOCRIT 39.3 % (36.0-47.0); HEMOGLOBIN 12.7 g/dl (12.0-15.5); MEAN CORPUSCULAR HEMOGLOBIN 29.9 pg (27.0-33.0); MEAN CORPUSCULAR HGB CONC 32.3 g/dl (32.0-36.5); MEAN CORPUSCULAR VOLUME 92.5 fl (80.0-96.0); PLATELET COUNT, AUTOMATED 244 10^3/uL (150-450); RED BLOOD COUNT 4.25 10^6/uL (4.00-5.40); WHITE BLOOD COUNT 10.4 10^3/uL (4.0-10.0)
[2025-04-05 17:58] LABS: HEMOGLOBIN A1c 5.2 % (4.0-6.0)
== END ==
LOC: M SFHCCLAY 11:04
PROVIDERS: ATTEND Nurse Practitioner Family
DX: R60.0 Localized edema (principal); E78.2 Mixed hyperlipidemia; G47.33 Obstructive sleep apnea (adult) (pediatric); E66.01 Morbid (severe) obesity due to excess calories; N39.0 Urinary tract infection, site not specified; M19.90 Unspecified osteoarthritis, unspecified site; Z79.899 Other long term (current) drug therapy

== ENCOUNTER → 2025-05-26 | Outpatient (REF) | payer MEDICARE ==
[2025-05-26 19:33] LABS: APPEARANCE, URINE CLOUDY (CLEAR); BACTERIA, URINE AUTO 1+ (NEGATIVE); BILIRUBIN, URINE AUTO NEGATIVE (NEGATIVE); BLOOD, URINE BLOOD NEGATIVE (NEGATIVE); CALCIUM OXALATE CRYSTALS SMALL; GLUCOSE, URINE (UA) AUTO NEGATIVE (NEGATIVE); KETONE, URINE AUTO TRACE mg/dL (NEGATIVE); LEUKOCYTE ESTERASE, URINE AUTO 3+ (NEGATIVE); MUCUS, URINE SMALL (NEGATIVE); NITRITE, URINE AUTO POSITIVE (NEGATIVE); PROTEIN, URINE AUTO NEGATIVE (NEGATIVE); RBC, URINE AUTO 12 /HPF (0-3); SPECIFIC GRAVITY URINE AUTO 1.020 (1.002-1.035); SQUAMOUS EPITHELIAL CELL UR AU 3 /HPF (0-6); UROBILINOGEN, URINE AUTO 0.2 mg/dL (0.0-2.0); WBC, URINE AUTO TNTC /HPF (0-3)
== END ==
LOC: M SMT 17:14
PROVIDERS: ATTEND Physician Assistant
DX: N39.0 Urinary tract infection, site not specified (principal)

== ENCOUNTER → 2025-06-24 | Outpatient (REF) | payer MEDICARE ==
[2025-06-24 16:13] LABS: CALCIUM LEVEL 9.4 MG/DL (8.3-10.6); CARBON DIOXIDE LEVEL 27.0 MMOL/L (20-31); CHLORIDE LEVEL 104.0 MMOL/L (98-107); CREATININE FOR GFR 0.91 MG/DL (0.55-1.30); GLOMERULAR FILTRATION RATE 61.8 (>32); POTASSIUM SERUM 4.3 MMOL/L (3.5-5.1); SODIUM LEVEL 142.0 MMOL/L (136-145)
== END ==
LOC: M SMT 14:58 → M LABWUC 14:58
PROVIDERS: ATTEND Physician Assistant
DX: N39.0 Urinary tract infection, site not specified (principal)

== ENCOUNTER → 2025-07-06 | Outpatient (REF) | payer MEDICARE ==
[2025-07-06 17:31] LABS: APPEARANCE, URINE HAZY (CLEAR); BACTERIA, URINE AUTO 1+ (NEGATIVE); BILIRUBIN, URINE AUTO NEGATIVE (NEGATIVE); BLOOD, URINE BLOOD NEGATIVE (NEGATIVE); GLUCOSE, URINE (UA) AUTO NEGATIVE (NEGATIVE); KETONE, URINE AUTO NEGATIVE (NEGATIVE); LEUKOCYTE ESTERASE, URINE AUTO 3+ (NEGATIVE); NITRITE, URINE AUTO POSITIVE (NEGATIVE); PROTEIN, URINE AUTO NEGATIVE (NEGATIVE); RBC, URINE AUTO 6 /HPF (0-3); SPECIFIC GRAVITY URINE AUTO 1.010 (1.002-1.035); SQUAMOUS EPITHELIAL CELL UR AU 1 /HPF (0-6); TRANSITIONAL EPITHELIAL AUTO <1 /HPF; UROBILINOGEN, URINE AUTO 0.2 mg/dL (0.0-2.0); WBC, URINE AUTO 154 /HPF (0-3)
== END ==
LOC: M SMT 16:37
PROVIDERS: ATTEND Physician Assistant
DX: N39.0 Urinary tract infection, site not specified (principal)

== ENCOUNTER → 2025-11-01 | Outpatient (REF) | payer MEDICARE ==
[2025-11-01 17:48] LABS: APPEARANCE, URINE HAZY (CLEAR); BACTERIA, URINE AUTO NEGATIVE (NEGATIVE); BILIRUBIN, URINE AUTO NEGATIVE (NEGATIVE); BLOOD, URINE BLOOD NEGATIVE (NEGATIVE); GLUCOSE, URINE (UA) AUTO NEGATIVE (NEGATIVE); KETONE, URINE AUTO NEGATIVE (NEGATIVE); LEUKOCYTE ESTERASE, URINE AUTO TRACE (NEGATIVE); MUCUS, URINE SMALL (NEGATIVE); NITRITE, URINE AUTO POSITIVE (NEGATIVE); PROTEIN, URINE AUTO NEGATIVE (NEGATIVE); RBC, URINE AUTO 2 /HPF (0-3); SPECIFIC GRAVITY URINE AUTO 1.018 (1.002-1.035); SQUAMOUS EPITHELIAL CELL UR AU 0 /HPF (0-6); UROBILINOGEN, URINE AUTO 4.0 mg/dL (0.0-2.0); WBC, URINE AUTO 72 /HPF (0-3)
== END ==
LOC: M SFHCCLAY 11:55
PROVIDERS: ATTEND Physician Assistant
DX: R39.9 Unspecified symptoms and signs involving the genitourinary system (principal)